=== PATIENT | female | born 1995 | race Two or more races ===

== ENCOUNTER 2017-10-03 16:43 | Emergency (ER) | payer OTHER ==
[2017-10-03 16:59] VITALS: BP 109/57; PULSE 93; TEMP 98.5; BMI 21.0
--- NOTE | 2017-10-03 17:47 | PDOC ---
Attending Attestation - HPI HPI: 10/03/17 19:42 The patient is a 22 year old female presenting with her fiance, A0, currently 17 weeks , with a significant past medical history of seizures , who presents to the emergency department complaining of abdominal pain over the past week. She describes her abdominal pain as ranging from mild to moderate , without radiation or modifying factors. She denies vaginal bleeding or discharge.The patient had a positive test after her previous ED visit and an ultrasound. Ultrasound Impression: Single live intrauterine with estimated gestational age of 7 weeks 3 days. heart activity was documented. A small subchorionic hemorrhage is present measuring 3 x 0.6 cm for which a follow up is recommended. The pattient denies chest pain, shortness of breath, headache or dizziness. Denies fever, chills, nausea, vomiting, diarrhea and constipation. Denies dysuria, frequency, urgency and hematuria. LMP: 07/23/2017 (As per patient but story doesnt add up according to ultrasound) Allergies: None Past surgical history: None reported Social History: 2-3 cigarette per day for 7 years. Denies alcohol use. Reports daily recreational marijuana use. - Physicial Exam PE: 10/03/17 19:42 GENERAL: Awake, alert, and fully oriented, in no acute distress HEAD: No signs of trauma, normocephalic, atraumatic EYES: PERRLA, EOMI, sclera anicteric, conjunctiva clear ENT: Auricles normal inspection, hearing grossly normal, nares patent, oropharynx clear without exudates. Moist mucosa NECK: Normal ROM, supple, no lymphadenopathy, JVD, or masses LUNGS: No distress, speaks full sentences, clear to auscultation bilaterally HEART: (+) Tachycardia. normal S1 and S2, no murmurs, rubs or gallops, peripheral pulses normal and equal bilaterally. ABDOMEN: (+) Gravid below level of umbilicus. Soft, nontender, normoactive bowel sounds. No guarding, no rebound. No masses EXTREMITIES : Normal inspection, Normal range of motion, no edema. No clubbing or cyanosis. NEUROLOGICAL: Cranial nerves II through XII grossly intact. Normal speech, normal gait, no focal sensorimotor deficits SKIN: Warm, Dry, normal turgor, no rashes or lesions noted <Hiren Patel - Last Filed: 10/03/17 20:52> - Resident Resident Name: Long Tidwell - ED Attending Attestation I have performed the following: I have examined & evaluated the patient, The case was reviewed & discussed with the resident, I agree w/resident's findings & plan, Exceptions are as noted - Medical Decision Making 10/03/17 17:47 I, Dr. Miranda Arana, DO, attest that this document has been prepared under my direction and personally reviewed by me in its entirety. I further attest, that it accurately reflects all work, treatment, procedures and medical decision -making performed by me. 10/03/17 18:53 a/p: 22yo female at 8wks with lower abd cramping -no bleeding -no vaginal complaints -no n/v/d -no dysuria -has not followed with [facility] KEEPER -will check labs, type and screen -prior ultrasound showed small subchorionic hemorrhage, 7wks 3 days -will monitor and reassess 10/03/17 19:36 pt willing to undergo lab testing prior beta >100,000 10/03/17 20:17 pt with 3+leuks on ua and 13wbc, will start abx pending beta at this time 10/03/17 20:52 10/03/17 21:08 beta increasing O+ on blood type pending u/s 10/03/17 21:48 ultrasound shows IUP at 9d 0d 10/03/17 21:48 pt stable for d/c to home. <Miranda Arana - Last Filed: 10/03/17 21:48>
--- NOTE | 2017-10-03 17:53 | PDOC ---
History of Present Illness <Miranda Arana - Last Filed: 10/03/17 21:48> - History of Present Illness Initial Comments: 10/03/17 18:13 22 yo , LMP unknown, 17 wga with h/o seizure disorder who p/w abdominal pain in . Patient reports diffuse, worsening, unremitting, crampy abdominal pain over the past 1 week. No identifiable triggers or alleviators. Denies N/V, F/C, vaginal bleeding/discharge, pelvic pain, dysuria, hematuria, flank pain, vision changes, diarrhea, constipation, lightheadedness, weakness, sensory change. Patient discovered she was at previous ED visit, with + urine preg. Does not f/w OB. Reports continued tobacco use 2-3 cigarettes per day for 7 years. Denies alcohol use. Reports daily recreational marijuana use. Denies h/o abdominal surgery or GI pathology. Prior transvaginal U/S ( [facility] ) with single live IUP 17w3d, and small subchorionic hemorrhage. <Long Tidwell - Last Filed: 10/03/17 22:07> - General Chief Complaint: Pain Stated Complaint: ABD PAIN (15 WEEKS ) Time Seen by Provider: 10/03/17 16:57 Past History <Miranda Arana - Last Filed: 10/03/17 21:48> - Past Medical History Asthma: Yes COPD: No Seizures: Yes - Immunization History Immunization Up to Date: Yes - Suicide/Smoking/Psychosocial Hx Smoking History: Current every day smoker Have you smoked in the past 12 months: Yes Number of Cigarettes Smoked Daily: 6 Information on smoking cessation initiated: No Hx Alcohol Use: No Drug/Substance Use Hx: No Substance Use Type: Marijuana <Long Tidwell - Last Filed: 10/03/17 22:07> - Past Medical History Allergies/Adverse Reactions: Allergies Allergy/AdvReac Type Severity Reaction Status Date / Time No Known Allergies Allergy Verified 10/03/17 16:58 Home Medications: Ambulatory Orders Nitrofurantoin Monohyd/M-Cryst [Macrobid -] 100 mg PO BID #14 capsule 10/03/17 Review of Systems - Review of Systems Comments:: 10/03/17 17:53 GENERAL/CONSTITUTIONAL: No fever or chills. No weakness. HEAD, EYES, EARS, NOSE AND THROAT: No change in vision. No ear pain or discharge. No sore throat. CARDIOVASCULAR: No chest pain or shortness of breath RESPIRATORY: No cough, wheezing, or hemoptysis. GASTROINTESTINAL: + Abdominal pain. No nausea, vomiting, diarrhea or constipation. GENITOURINARY: No dysuria, frequency, or change in urination. MUSCULOSKELETAL: No joint or muscle swelling or pain. No neck or back pain. SKIN: No rash NEUROLOGIC: No headache, vertigo, loss of consciousness, or change in strength/ sensation. ENDOCRINE: No increased thirst. No abnormal weight change HEMATOLOGIC/LYMPHATIC: No anemia, easy bleeding, or history of blood clots. ALLERGIC/IMMUNOLOGIC: No hives or skin allergy. <Long Tidwell - Last Filed: 10/03/17 22:07> *Physical Exam - Vital Signs Last Vital Signs Temp Pulse Resp BP Pulse Ox 98.5 F 93 H 16 109/57 100 10/03/17 16:43 10/03/17 16:43 10/03/17 16:43 10/03/17 16:43 10/03/17 16:43 <Miranda Arana - Last Filed: 10/03/17 21:48> - Vital Signs Last Vital Signs Temp Pulse Resp BP Pulse Ox 98.5 F 93 H 16 109/57 100 10/03/17 16:43 10/03/17 16:43 10/03/17 16:43 10/03/17 16:43 10/03/17 16:43 - Physical Exam Comments: 10/03/17 17:53 GENERAL: Awake, alert, and fully oriented, in no acute distress HEAD: No signs of trauma, normocephalic, atraumatic EYES: PERRLA, EOMI, sclera anicteric, conjunctiva clear ENT: Hearing grossly normal, nares patent, oropharynx clear without exudates. Moist mucosa NECK: Normal ROM, supple, no lymphadenopathy, JVD, or masses LUNGS: No distress, speaks full sentences, clear to auscultation bilaterally HEART: Regular rate and rhythm, normal S1 and S2, no murmurs, rubs or gallops, peripheral pulses normal and equal bilaterally. ABDOMEN: Soft, mild lower abdominal ttp, normoactive bowel sounds. No guarding , no rebound. No masses. Neg CVA ttp. Neg suprapubic ttp. : Normal appearing external genitalia. Absent blood in vaginal vault. Cervical os closed. Scant white discharge in vagina. Absent CMT on BM. EXTREMITIES : Normal inspection, Normal range of motion, no edema. No clubbing or cyanosis. SKIN: Warm, Dry, normal turgor, no rashes or lesions noted <YawLong - Last Filed: 10/03/17 22:07> ED Treatment Course - LABORATORY CBC & Chemistry Diagram: 10/03/17 19:30 10/03/17 19:30 - ADDITIONAL ORDERS Additional order review: Laboratory Results 10/03/17 10/03/17 10/03/17 Unknown 19:39 19:30 Sodium 136 Potassium 3.3 L Chloride 101 Carbon Dioxide 28 Anion Gap 7 L BUN 9 Creatinine 0.6 Creat Clearance w eGFR > 60 Random Glucose 78 Calcium 9.5 Total Bilirubin 0.2 AST 14 L ALT 19 Alkaline Phosphatase 67 Total Protein 7.8 Albumin 4.5 Beta HCG, Quant 064599.3 Urine Color Urine Appearance Urine pH Ur Specific [place] Urine Protein Urine Glucose (UA) Urine Ketones Urine Blood Urine Nitrite Urine Bilirubin Urine Urobilinogen Ur Leukocyte Esterase Urine WBC (Auto) Urine RBC (Auto) Ur Epithelial Cells Urine Bacteria Hyaline Casts Urine Mucus Opiates Screen Negative Methadone Screen Negative Barbiturate Screen Negative Phencyclidine Screen Negative Ur Amphetamines Screen Negative MDMA (Ecstasy) Screen Negative Benzodiazepines Screen Negative Cocaine Screen Negative U Marijuana (THC) Screen Positive Blood Type Antibody Screen 10/03/17 10/03/17 19:30 19:10 Sodium Potassium Chloride Carbon Dioxide Anion Gap BUN Creatinine Creat Clearance w eGFR Random Glucose Calcium Total Bilirubin AST ALT Alkaline Phosphatase Total Protein Albumin Beta HCG, Quant Urine Color Yellow Urine Appearance Slcloudy Urine pH 7.0 Ur Specific [place] 1.024 Urine Protein 1+ H Urine Glucose (UA) Negative Urine Ketones Trace H Urine Blood Negative Urine Nitrite Negative Urine Bilirubin Negative Urine Urobilinogen Negative Ur Leukocyte Esterase 3+ H Urine WBC (Auto) 13 Urine RBC (Auto) 3 Ur Epithelial Cells Few Urine Bacteria Rare Hyaline Casts 2 Urine Mucus Many Opiates Screen Methadone Screen Barbiturate Screen Phencyclidine Screen Ur Amphetamines Screen MDMA (Ecstasy) Screen Benzodiazepines Screen Cocaine Screen U Marijuana (THC) Screen Blood Type O POSITIVE Antibody Screen Negative 10/03/17 19:30 RBC 3.99 MCV 91.2 MCHC 34.2 RDW 16.3 H MPV 7.2 L Neutrophils % 74.7 Lymphocytes % 16.6 Monocytes % 7.8 Eosinophils % 0.4 Basophils % 0.5 - RADIOLOGY Radiology Studies Ordered: Category Date Time Status <14WKS US [US] Stat Ultrasound 10/03/17 18:40 Completed <YasmeenMiranda - Last Filed: 10/03/17 21:48> - LABORATORY CBC & Chemistry Diagram: 10/03/17 19:30 10/03/17 19:30 - RADIOLOGY Radiology Studies Ordered: Category Date Time Status TRANSVAGINAL US PREG [US] Urgent Ultrasound 10/03/17 17:37 Ordered <Long Tidwell - Last Filed: 10/03/17 22:07> Medical Decision Making - Medical Decision Making 10/03/17 19:06 22 yo , LMP unknown, 17 wga with h/o seizure disorder who p/w diffuse, worsening, unremitting, crampy abdominal pain over the past 1 week. No identifiable triggers or alleviators. Denies N/V, F/C, vaginal bleeding/ discharge, pelvic pain, dysuria, hematuria, flank pain, vision changes, diarrhea , constipation, lightheadedness, weakness, sensory change. Continued tobacco use 2-3 cigarettes per day for 7 years. Denies alcohol use. Reports daily recreational marijuana use. Prior transvaginal U/S ( [facility] 09/25/17) with single live IUP 17w3d, and small subchorionic hemorrhage. HDS. Physical exam unremarkable. Cervical os closed with scant white discharge in vaginal vault. Absent blood visualized. Will asses for viable IUP and related causes of abdominal pain including ectopic , subchorionic hemorrhage, threatened , or placenta previa. ED Course: CBC, CMP, BHCG UA, Urine Cx. Transvaginal U/S 10/03/17 20:13 UA: 3 + Leuk esterase, 13 WBC 10/03/17 20:14 WBC: 11.1 Macrobid sent to pharmacy 10/03/17 20:31 HC 10/03/17 22:04 Transvaginal U/S with IUP 9w0d. FHR 182. Pt. stable for d/c with return precautions. Pt. advised to f/u with [facility] [facility] [facility] <Long Tidwell - Last Filed: 10/03/17 22:07> *DC/Admit/Observation/Transfer <Miranda Arana - Last Filed: 10/03/17 21:48> - Attestations Physician Attestion: 10/03/17 20:16 I attest to the information provided in this note. <Long Tidwell - Last Filed: 10/03/17 22:07> Diagnosis at time of Disposition: Abdominal pain affecting - Discharge Dispostion Disposition: HOME Condition at time of disposition: Stable - Prescriptions Prescriptions: Nitrofurantoin Monohyd/M-Cryst [Macrobid -] 100 mg PO BID #14 capsule - Referrals Referrals: Bhavya Freed V [Primary Care Provider] - Yuridia Wilson MD [Staff Physician] - Deo Rodriguez MD [Staff Physician] - - Patient Instructions Printed Discharge Instructions: DI for Abdominal Pain -- Early Additional Instructions: Please return to the emergency department with any new or worsening symptoms or concerns. Please follow up with your primary care physician within 72 hours. Please follow up with process engineering intern physician within 1 week. Please take Macrodantin daily as prescribed for UTI. - Post Discharge Activity
[2017-10-03 19:03] LABS: URINE APPEARANCE SLCLOUDY; URINE BILIRUBIN NEGATIVE (<2.0 mg/dL); URINE BLOOD NEGATIVE (NEGATIVE); URINE COLOR YELLOW; URINE GLUCOSE (UA) NEGATIVE (NEGATIVE); URINE KETONE TRACE (NEGATIVE); URINE NITRITE NEGATIVE (NEGATIVE); URINE UROBILINOGEN NEGATIVE mg/dL (0.2-1.0)
[2017-10-03 19:12] LABS: URINE LEUK ESTERASE 3+ (NEGATIVE); URINE PROTEIN 1+ (NEGATIVE)
[2017-10-03 19:14] LABS: EPI CELLS FEW /HPF (FEW); URINE BACTERIA RARE /hpf (NONE SEEN); URINE HYALINE CAST 2 /lpf; URINE MUCUS MANY
[2017-10-03 19:28] LABS: COCAINE, UR NEGATIVE ng/ml (CUTOFF=300); URINE AMPHETAMINES NEGATIVE ng/ml (CUTOFF=500); URINE BARBITURATES NEGATIVE ng/ml (CUTOFF=200); URINE BENZODIAZEPINES NEGATIVE ng/ml (CUTOFF=200)
[2017-10-03 19:29] LABS: METHADONE, UR NEGATIVE ng/ml (CUTOFF=300); OPIATES, URI NEGATIVE ng/ml (CUTOFF=300); PHENCYCLIDINE,URINE NEGATIVE ng/ml (CUTOFF=25)
[2017-10-03 19:35] LABS: BASO % 0.5 % (0-2.0); EOS % 0.4 % (0-4.5); HEMATOCRIT 36.4 % (32.4-45.2); HEMOGLOBIN 12.4 GM/dL (10.7-15.3); LYMPH % 16.6 % (8-40); MCH 31.2 pg (25.7-33.7); MCHC 34.2 g/dl (32.0-36.0); MEAN CELL VOLUME 91.2 fl (80-96); MEAN PLT VOLUME 7.2 fl (7.5-11.1); MONO % 7.8 % (3.8-10.2); NEUT % 74.7 % (42.8-82.8); PLATELET COUNT 329 K/MM3 (134-434); RBC 3.99 M/mm3 (3.60-5.2); RDW 16.3 % (11.6-15.6); WHITE BLOOD COUNT 11.1 K/mm3 (4.0-10.0)
[2017-10-03] MEDS ORDERED: NITROFURANTOIN MACROCRYSTAL 50 MG CAPSULE (FP) PO SCH (19:45)
[2017-10-03 20:05] LABS: ALBUMIN 4.5 g/dl (3.4-5.0); ALK PHOS 67 U/L (45-117); ANION GAP 7 (8-16); BILIRUBIN,TOTAL 0.2 mg/dL (0.2-1.0); BLOOD UREA NITROGEN 9 mg/dL (7-18); CALCIUM 9.5 mg/dL (8.5-10.1); CHLORIDE 101 mmol/L (98-107); CO2 28 mmol/L (21-32); CREATININE 0.6 mg/dL (0.55-1.02); GLUCOSE,RANDOM 78 mg/dL (74-106); POTASSIUM 3.3 mmol/L (3.5-5.1); SGOT/AST 14 U/L (15-37); SGPT/ALT 19 U/L (12-78); SODIUM 136 mmol/L (136-145); TOT PROT 7.8 g/dl (6.4-8.2)
[2017-10-03] MEDS ORDERED: NITROFURANTOIN MACROCRYSTAL 50 MG CAPSULE (FP) ONE (20:23)
== END 2017-10-03 22:26 | disposition home or self-care (01) ==
LOC: JER 16:43
DX: O26.892 Other specified pregnancy related conditions, second trimester (principal); Z3A.15 15 weeks gestation of pregnancy; R10.9 Unspecified abdominal pain; F17.210 Nicotine dependence, cigarettes, uncomplicated; J45.909 Unspecified asthma, uncomplicated
CPT/HCPCS: 36415; 76801-TC; 80053; 80307; 81003; 81015; 84702; 85025; 86850; 86900; 86901; 99283-25